=== PATIENT | female | born 1970 | race African-American/Black ===

== ENCOUNTER 2020-02-25 08:39 | Emergency (ER) | payer MEDICAID ==
[~2020-02-25] VITALS: Ht 172.7 cm; Wt 102.0 kg
[2020-02-25] MEDS ORDERED: ONDANSETRON HCL 4MG/2ML INJ IV STA (09:42)
[2020-02-25] MEDS ORDERED: KETOROLAC 30MG/ML VIAL IV STA (09:42)
[2020-02-25] MEDS ORDERED: SODIUM CHLORIDE 0.9% 1,000 ML IV ONE (09:45)
[2020-02-25 10:47] LABS: BASOPHILS % 0.6 % (0.0-2.0); EOSINOPHILS % 1.5 % (0.0-5.0); HEMATOCRIT. 44.3 % (36.0-48.0); HEMOGLOBIN. 14.9 g/dL (12.0-16.0); LYMPHOCYTES % 17.3 % (20.0-50.0); MEAN CORPUSCULAR HEMOGLOBIN 27.4 pg (28.0-32.0); MEAN CORPUSCULAR VOLUME 81.3 fL (81.0-99.0); MEAN PLATELET VOLUME 10.3 fl (7.4-10.4); MONOCYTES % 10.5 % (2.0-8.0); NEUTROPHILS % 70.1 % (40.0-76.0); PLATELET 186 x1000/uL (130-400); RED BLOOD CELL COUNT 5.45 mill/uL (4.2-5.4); RED CELL DISTRIBUTION WIDTH 13.2 % (11.6-14.6)
[2020-02-25 10:56] LABS: CLARITY URINE CLOUDY (CLEAR); COLOR URINE YELLOW (YELLOW); KETONES URINE NEGATIVE (NEGATIVE); LEUKOCYTE ESTERASE URINE 3+ (NEGATIVE); NITRITE URINE NEGATIVE (NEGATIVE); OCCULT BLOOD URINE 1+ (NEGATIVE); PROTEIN URINE 1+ (NEGATIVE); SPECIFIC GRAVITY URINE 1.011 (1.005-1.030)
[2020-02-25 10:58] LABS: CHLORIDE 97 mEq/L (98-107)
[2020-02-25 11:14] LABS: HCG SCREEN NEGATIVE
[2020-02-25 11:30] VITALS: BP 122/80
== END 2020-02-25 11:50 | disposition home or self-care (01) ==
LOC: ER 08:39
DX: R10.32 Left lower quadrant pain (principal); N30.90 Cystitis, unspecified without hematuria; D64.9 Anemia, unspecified; Z90.710 Acquired absence of both cervix and uterus; Z98.890 Other specified postprocedural states
CPT/HCPCS: 36415; 74176; 80053; 81003; 81025; 83690; 84703; 85025; 87086; 93005; 96361; 96374; 96375; 99285; J1885; J2405; J7030